=== PATIENT | male | born 1985 | race Two or more races ===

== ENCOUNTER 2021-12-30 02:51 | Emergency (ER) | payer MEDICAID, OTHER ==
[~2021-12-30] VITALS: Ht 162.6 cm; Wt 108.9 kg
[2021-12-30] MEDS ORDERED: ACETAMINOPHEN 500 MG TAB PO ONE (03:30)
[2021-12-30 07:00] VITALS: BP 118/47
[2021-12-30] MEDS ORDERED: ONDANSETRON HCL 4 MG/2 ML VIAL IV ONE (07:00)
[2021-12-30] MEDS ORDERED: MORPHINE SULFATE 4 MG/ML SYR/VIAL IV ONE (07:00)
[2021-12-30] MEDS ORDERED: cefTRIAXone W LIDOCAINE 1 GM IM IM ONE (07:00)
[2021-12-30] MEDS ORDERED: cefTRIAXone 1GM/50ML D5W 50 ML IV ONE ×2 (07:30→08:45)
[2021-12-30] MEDS ORDERED: ACETAMINOPHEN 325 MG TAB PO ONE (08:15)
[2021-12-30] MEDS ORDERED: CLINDAMYCIN 600MG IV 50 ML IV ONE (08:45)
[2021-12-30] MEDS ORDERED: SODIUM CHLORIDE 0.9% 1,000 ML IV ONE (08:45)
[2021-12-30] MEDS ORDERED: CLIN300C8 PO (09:32)
[2021-12-30] MEDS ORDERED: CEPH-509 PO (09:32)
[2021-12-30 09:39] LABS: Albumin 3.2 g/dL (3.4-5.0); Calcium 8.7 mg/dL (8.5-10.1); Potassium 3.6 mmol/L (3.5-5.1)
[2021-12-30 09:43] LABS: BUN/Creatinine Ratio 16.3; Bilirubin, Total 0.9 mg/dL (0.2-1.0); Total Protein 7.4 g/dL (6.4-8.2)
[2021-12-30 10:34] LABS: Basophils # (auto) 0 10 ^3/uL (0-0.2); Basophils % (auto) 0.3 % (0.0-2.0); Eosinophils # (auto) 0 10 ^3/uL (0-0.8); Hematocrit 39.3 % (41.0-53.0); Lymphocytes # (auto) 1.5 10 ^3/uL (0.4-5.4); Lymphocytes % (auto) 9.6 % (10.0-50.0); Mean Corpuscular Hemoglobin 32.8 pg (28.0-32.0); Mean Corpuscular Hgb Conc. 35.7 g/dL (32.0-36.0); Mean Corpuscular Volume 91.9 fL (80.0-100.0); Monocytes # (auto) 1.1 10 ^3/uL (0-1.3); Monocytes % (auto) 7.1 % (0.0-12.0); Neutrophils # (auto) 12.8 10 ^3/uL (1.6-8.6); Nucleated Red Blood Cells % 0.5 %; Red Blood Cells 4.28 10^6/uL (4.5-5.90); Red Cell Distribution Width 12.5 % (11.8-14.3); White Blood Cell 15.4 10^3/uL (4.4-10.8)
== END 2021-12-30 11:43 | disposition home or self-care (01) ==
LOC: ER 02:51
DX: N43.3 Hydrocele, unspecified (principal); N49.2 Inflammatory disorders of scrotum; N50.89 Other specified disorders of the male genital organs
CPT/HCPCS: 36415; 76870; 80053; 85025; 86703; 87040; 87491; 87591; 96365; 96366; 96367; 99285; J0696; J3490; J7030